=== PATIENT | female | born 2000 ===

== ENCOUNTER 2025-04-06 12:18 | Emergency (ER) | payer MEDICAID ==
[~2025-04-06] VITALS: Ht 160 cm; Wt 67.9 kg
[2025-04-06 12:35] VITALS: BP 103/68; PULSE 69; RESP 18; O2SAT 98
--- NOTE | 2025-04-06 12:44 | Physician Documentation ---
HPI ~ General Chief Complaint: Medication Request Stated Complaint: MED REQUEST Time Seen by MD: 12:39 History of Present Illness HPI Comments Very pleasant 24-year-old female that presents to the emergency department for evaluation of breakthrough psychotic symptoms with her lamotrigine and Haldol. Patient reports that she has been diagnosed with schizoaffective disorder. Her medications were recently changed due to unpleasant side effects. Patient reports that she was recently on risperidone that cause her to lactate. Patient reports that she is seeing strained colors around people hearing things that are not present she believes she is not harmful to herself or anyone else at this time but she is concerned that the medication is not effective med she would like to have it changed or increased if possible. Medication Reconciliation Allergies: Coded Allergies: No Known Allergies (Unverified , 04/06/25) Review of Systems ROS As stated above in the HPI, otherwise all systems are reviewed and negative. Physical Exam Physical Exam Vital Signs: Temperature: 98.9, Source: Oral, Heart Rate: 69, Respiratory Rate: 18, BP: 103/68, Pulse Oximetry: 98, Weight: 67.900 Oxygen Flow Rate: 0 Physical Exam VITALS: Reviewed and as above. GENERAL: Alert, no apparent distress. MUSCULOSKELETAL No deformities, no edema SKIN: Warm and dry, no rash NEURO: Oriented x4, No motor or sensory deficit PSYCH: Normal mood and affect, no agitation Progress Results/Orders Results/Orders Vital Signs 04/06/25 12:35 Temp 98.9 Pulse 69 Resp 18 B/P (MAP) 103/68 Pulse Ox 98 O2 Flow Rate 0 Medical Decision Making Additional information obtaine: other Findings MEDICAL DECISION-MAKING Chief Complaint: Breakthrough psychotic symptoms on current medication regimen History of Present Illness: 24-year-old female with schizoaffective disorder presenting to the emergency department with breakthrough psychotic symptoms despite current treatment with lamotrigine and haloperidol. Patient reports visual disturbances (seeing strained colors around people) and auditory hallucinations. She was recently switched from risperidone due to galactorrhea. Patient denies suicidal or homicidal ideation and does not pose a risk to herself or others at this time. Assessment: Schizoaffective disorder with inadequate symptom control on current antipsychotic regimen. Patient is experiencing active psychotic symptoms including visual and auditory hallucinations, indicating breakthrough psychosis despite treatment with haloperidol and lamotrigine. Clinical Reasoning: The patient presents with breakthrough psychotic symptoms while on combination therapy with an antipsychotic (haloperidol) and mood stabilizer (lamotrigine). While combination therapy with mood stabilizers and antipsychotics is associated with improved outcomes in schizoaffective disorder, the patient's current symptoms indicate inadequate control requiring medication optimization. [4] The decision was made not to change antipsychotic medications in the emergency department setting. Optimal management of schizoaffective disorder requires individualized treatment planning that addresses both psychotic and affective symptoms, which is best accomplished in the outpatient setting where longitudinal assessment and careful medication titration can occur. [5] Evidence supports that antipsychotic monotherapy may not be superior to combination treatments for acute exacerbations, and medication changes require careful consideration of the patient's previous response, side effect profile, and long-term adherence. [5-6] The patient does not meet criteria for psychiatric admission. She denies suicidal or homicidal ideation, is not a danger to herself or others, and is able to care for herself. Early outpatient follow-up after psychiatric emergency visits is associated with improved outcomes, including greater medication adherence and appropriate service utilization. Follow-up within 7 days of discharge has been shown to be beneficial for patients with psychiatric conditions, and scheduling outpatient appointments prior to discharge is a common practice to promote continuity of care. [1-3] Plan: Discharge from emergency department - Patient does not require psychiatric admission at this time Continue current medications: Lamotrigine at current dose Haloperidol at current dose Outpatient follow-up: Assist patient in scheduling follow-up appointment with [facility] or another local clinic [facility] follow-up within 7 days for medication evaluation and possible adjustment Patient to see primary care provider or psychiatrist for comprehensive medication review and optimization Safety planning: Patient instructed to return to emergency department if symptoms worsen, if she develops suicidal or homicidal ideation, or if she becomes a danger to herself or others Patient verbalized understanding of return precautions Medication optimization to be addressed at outpatient follow-up: Consideration of antipsychotic dose adjustment or switch given breakthrough symptoms Evaluation of alternative antipsychotics with lower prolactin-related side effects given history of galactorrhea with risperidone Continued combination therapy with mood stabilizer as evidence supports improved outcomes [4] Disposition: Discharge home with outpatient psychiatry follow-up arranged Prognosis: Good with appropriate outpatient medication optimization and close follow-up Differential Dx:Considerations: Include: Adverse circumstances, Economic, Psy chosocial, Medical services unavail., Medication refill, Medication non- compliance, Other Departure Disposition: 01 HOME / SELF CARE / HOMELESS Impression: Primary Impression: General medical exam Additional Impression: Encounter for medication adjustment Condition: Stable Discharge Instructions: Medical Screening Exam Additional Instructions: Your Diagnosis You came to the emergency department today because you were having symptoms related to your schizoaffective disorder, including seeing colors around people and hearing things that are not present. These are called breakthrough symptoms, which means your current medications may not be controlling your symptoms as well as they should. Your Current Medications Continue taking your current medications exactly as prescribed: Lamotrigine (mood stabilizer) Haloperidol (antipsychotic) Do not stop or change these medications on your own. Your medications will be reviewed and possibly adjusted by your outpatient provider. What Happens Next We will contact [facility] today on your behalf to help you get an appointment scheduled. It is very important that you follow up with them as soon as possible, ideally within the next 7 days. [1-3] At your follow-up appointment, your provider will: Review your current symptoms Evaluate whether your medications need to be changed or adjusted Discuss other treatment options that may work better for you Create a plan to help control your symptoms Important Safety Information You told us today that you are not thinking about hurting yourself or anyone else. However, you should return to the emergency department right away or call 911 if: You have thoughts of hurting yourself or others Your symptoms get much worse You feel like you cannot keep yourself safe You have severe side effects from your medications You can also call the National Suicide Prevention Lifeline anytime at 988 for free, confidential support. What You Should Do Wait for a call from [facility] about your appointment. If you do not hear from them within 2-3 business days, please call them directly to schedule your appointment. Keep taking your current medications as prescribed until you see your outpatient provider. Write down your symptoms so you can tell your provider what you have been experiencing. This will help them make the best treatment plan for you. Bring all your medication bottles to your follow-up appointment. Ask a family member or friend to help remind you about your appointment if needed. Remember: Early follow-up after an emergency department visit is very important for managing your condition and preventing your symptoms from getting worse. Your outpatient provider will work with you to find the right medications to help you feel better. [1][3] Questions? If you have questions about your discharge instructions or your follow-up care, you can call [facility] or return to the emergency department if needed. We were able to contact the patient's provider at [facility] in [place]. I spoke with the investigative writer for [facility] they have arranged for an appointment for this patient for 8:00 a.m. on Wednesday. Discussed this information with the patient she will presents to the clinic on Wednesday. Discussed with the patient if she has any needs in the meantime or her symptoms worsen to please return to the emergency department and we will see her then and evaluate her at that time. Patient understands and reports that she will present to her appointment on Wednesday at 8:00 a.m. and return to the emergency department if she has any worsening or recurrent symptoms or any additional concerning symptoms that we discussed here today. Referrals: NO PRIMARY CARE PROVIDER (PCP) Education Educated: Patient Educated regarding: diagnosis, treatment, need for follow up Signature Scribe Signature: A Attestation: Scribed for Briana Quiros by ADDY Smith . 04/06/25 13:40 BRIANA QUIROS Apr 06, 2025 12:44
[2025-04-06 13:49] VITALS: TEMP 98.9
== END 2025-04-06 13:50 | disposition home or self-care (01) ==
LOC: ER 12:19
DX: Z00.00 Encounter for general adult medical examination without abnormal findings (principal); F25.9 Schizoaffective disorder, unspecified
CPT/HCPCS: 99282